=== PATIENT | female | born 1965 | race African-American/Black ===

== ENCOUNTER 2019-05-17 19:04 | Emergency (ER) | payer OTHER, MEDICARE ==
[2019-05-17] MEDS ORDERED: ACETAMINOPHEN 325 MG TABLET PO ONE (21:24)
[2019-05-17] MEDS ORDERED: IBUPROFEN 600 MG TABLET PO ONE (21:24)
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
[2019-05-18 00:35] VITALS: BP 161/82
== END 2019-05-17 23:55 | disposition home or self-care (01) ==
LOC: ER 19:04
DX: M79.602 Pain in left arm (principal); M79.622 Pain in left upper arm; V49.40XA Driver injured in collision with unspecified motor vehicles in traffic accident, initial encounter; E11.9 Type 2 diabetes mellitus without complications
CPT/HCPCS: 99283